=== PATIENT | male | born 1965 | race African-American/Black ===

== ENCOUNTER 2019-03-21 15:52 | Emergency (ER) | payer OTHER ==
--- NOTE | 2019-03-21 16:00 | PDOC ---
Rapid Medical Evaluation Time Seen by Provider: 03/21/19 15:56 Medical Evaluation: Allergies Allergy/AdvReac Type Severity Reaction Status Date / Time No Known Allergies Allergy Verified 04/22/13 09:34 03/21/19 15:57 Pt presents for R foot pain/1st toe infection. He states he tried to take care of it, but it isn't getting better. He also admits to a cough Exam: Foot exam deferred to provider. Ambulatory, NAD Orders: labs Pt to proceed to the ER for evaluation Discharge Disposition - Diagnosis Toe pain Qualifiers: Laterality: right Qualified Code(s): M79.674 - Pain in right toe(s) - Referrals - Patient Instructions - Post Discharge Activity
[2019-03-21 16:01] VITALS: BP 129/74; PULSE 114; TEMP 98; BMI 28.1
--- NOTE | 2019-03-21 19:35 | PDOC ---
History of Present Illness - General Chief Complaint: Cold Symptoms Stated Complaint: INFECTED TOE,COUGHING Time Seen by Provider: 03/21/19 15:56 History Source: Patient - History of Present Illness Initial Comments: 03/21/19 19:33 53 year old cough, chest congestion 3 days. + nausea, vomiting last night. denies fever/ chills. denies abdominal pain. patient c/o infected toe x 2 months. patient reports that he has been using triple antibiotic with no relief in symptoms. patient reports increased pain to the right great toe. denies drug use. reports alcohol use once per week. PMHX: eczema, 03/21/19 19:35 Past History - Past Medical History Allergies/Adverse Reactions: Allergies Allergy/AdvReac Type Severity Reaction Status Date / Time No Known Allergies Allergy Verified 03/21/19 16:01 Home Medications: Ambulatory Orders Unobtainable Home Med List 0 dose .ROUTE UTDICT 04/22/13 Amlodipine/Valsartan [Exforge 5-160 mg Tablet] 1 each PO DAILY #0 tablet Amox-Tr/K Cl [Augmentin 875-125mg Tablet -] 1 tab PO BID #14 tablet 04/25/13 Metronidazole [Flagyl] 500 mg PO BID #14 tablet 04/25/13 Omeprazole [Prilosec (RX)] 20 mg PO DAILY #0 capsule 04/25/13 Cephalexin Monohydrate [Keflex -] 500 mg PO Q8H #30 capsule 03/21/19 Sulfamethoxazole/Trimethoprim [Bactrim Ds -] 1 tab PO BID #14 tablet 03/21/19 CVA: No COPD: No CHF: No GI Disorders: Yes (GI BLEED 1 WK AGO) HTN: Yes Liver Disease: Yes (Hep C) - Surgical History Abdominal Surgery: No Appendectomy: Yes - Immunization History Immunization Up to Date: Yes - Psycho Social/Smoking Cessation Hx Smoking Status: Yes Smoking History: Current some day smoker Have you smoked in the past 12 months: Yes Number of Cigarettes Smoked Daily: 0 If you are a former smoker, when did you quit?: on weekends Information on smoking cessation initiated: No 'Breaking Loose' booklet given: 03/16/12 Hx Alcohol Use: Yes Drug/Substance Use Hx: No Substance Use Type: Alcohol Hx Substance Use Treatment: No *Physical Exam - Vital Signs Last Vital Signs Temp Pulse Resp BP Pulse Ox 98.0 F 114 H 20 129/74 98 03/21/19 15:56 03/21/19 15:56 03/21/19 15:56 03/21/19 15:56 03/21/19 15:56 - Physical Exam General Appearance: Yes: Appropriately Dressed HEENT: positive: Nasal Congestion Respiratory/Chest: positive: Lungs Clear, Normal Breath Sounds Cardiovascular: positive: Regular Rhythm, Regular Rate Gastrointestinal/Abdominal: positive: Normal Bowel Sounds, Soft. negative: Tender Extremity: positive: Other (right great toe nil off with serosangious drainage toe is not warm to touch) Integumentary: positive: Normal Color, Dry, Warm Neurologic: positive: emt p II-XII NML intact, Fully Oriented, Alert ED Treatment Course - LABORATORY CBC & Chemistry Diagram: 03/21/19 19:53 03/21/19 19:53 Medical Decision Making - Medical Decision Making Viral syndrome; left great toe infection P: toe xray chest xray labs 03/21/19 21:40 Note: The patient insists on leaving the emergency dept and is signing out against medical advice. discussed further testing for elevated bilirubin level. patient refused further testing at this time The patient understands the risks and complications that may result from the refusal of medical care and admission which includes and permanent disability. The patient has the mental capacity of understanding the risks of refusing care and is capable of making an informed decision. The patient was instructed to return to the emergency department should changemind regarding medical care or should condition worsen. The patient signed the Against Medical Advice form. 03/22/19 04:22 Discharge - Discharge Information Problems reviewed: Yes Clinical Impression/Diagnosis: Flu-like symptoms, Cough, Infection of nailbed of toe of right foot, Elevated bilirubin Disposition: AGAINST MEDICAL ADVICE - Additional Discharge Information Prescriptions: Cephalexin Monohydrate [Keflex -] 500 mg PO Q8H #30 capsule Sulfamethoxazole/Trimethoprim [Bactrim Ds -] 1 tab PO BID #14 tablet - Follow up/Referral - Patient Discharge Instructions Additional Instructions: Additional Instructions: * Please call your personal physician to report your Emergency Department visit and to report your progress, if any. * If there is no improvement in symptoms in 2 days call your physician. * Return to the Emergency Department for any worsening symptoms. - Post Discharge Activity Work/Back to School Note: Back to Work
[2019-03-21] MEDS ORDERED: ONDANSETRON 4 MG/2 ML VIAL IVPUSH ONE (19:40)
[2019-03-21] MEDS ORDERED: SODIUM CHLORIDE 1,000 ML IV STA (19:41)
[2019-03-21 20:32] LABS: BASO % 1.3 % (0-2.0); EOS % 4.2 % (0-4.5); HEMATOCRIT 41.1 % (35.4-49); HEMOGLOBIN 13.8 GM/dL (11.7-16.9); LYMPH % 21.9 % (8-40); MCHC 33.5 g/dl (32.0-35.9); MEAN CELL VOLUME 98.3 fl (80-96); MEAN PLT VOLUME 9.6 fl (7.5-11.1); MONO % 19.1 % (3.8-10.2); NEUT % 53.5 % (42.8-82.8); PLATELET COUNT 77 K/MM3 (134-434); RBC 4.18 M/mm3 (4.00-5.60); RDW 12.7 % (11.9-15.9); WHITE BLOOD COUNT 6.5 K/mm3 (4.0-10.0)
[2019-03-21] MEDS ORDERED: ONDANSETRON 4 MG/2 ML VIAL ONE (20:34)
[2019-03-21 20:56] LABS: ALBUMIN 2.8 g/dl (3.4-5.0); BLOOD UREA NITROGEN 16.7 mg/dL (7-18); CALCIUM 8.9 mg/dL (8.5-10.1); CREATININE 1.8 mg/dL (0.55-1.3); POTASSIUM 3.3 mmol/L (3.5-5.1); TOT PROT 8.4 g/dl (6.4-8.2)
== END 2019-03-21 21:10 | disposition left against medical advice (07) ==
LOC: JERFT 15:52 → JER 15:52
PROC: 3E033GC Introduction of Other Therapeutic Substance into Peripheral Vein, Percutaneous Approach (ICD-10-PCS; principal; 2019-03-21)
PROC: 3E0337Z Introduction of Electrolytic and Water Balance Substance into Peripheral Vein, Percutaneous Approach (ICD-10-PCS; 2019-03-21)
DX: B34.9 Viral infection, unspecified (principal); L08.9 Local infection of the skin and subcutaneous tissue, unspecified; L08.89 Other specified local infections of the skin and subcutaneous tissue
CPT/HCPCS: 36415; 71046-TC-FY; 73660-TC-FY; 80053; 83690; 85025; 99281-25; J7030